=== PATIENT | female | born 1990 | race African-American/Black ===

== ENCOUNTER 2018-12-16 16:55 | Emergency (ER) | payer MEDICAID ==
[~2018-12-16] VITALS: Ht 152.4 cm; Wt 50.0 kg
[2018-12-16] MEDS ORDERED: ACETAMINOPHEN 325MG TABLET ONE (17:15)
[2018-12-16] MEDS ORDERED: KETOROLAC 15MG/ML VIAL IV ONE (21:30)
[2018-12-16] MEDS ORDERED: SODIUM CHLORIDE 0.9% 1000ML BAG (SEPSIS BOLUS) IV ONE (21:30)
[2018-12-16 21:47] LABS: BASOPHILS % 0.2 % (0.0-2.0); EOSINOPHILS % 0.2 % (0.0-5.0); HEMATOCRIT. 36.1 % (36.0-48.0); HEMOGLOBIN. 11.7 g/dL (12.0-16.0); LYMPHOCYTES % 16.8 % (20.0-50.0); MEAN CORPUSCULAR HEMOGLOBIN 27.4 pg (28.0-32.0); MEAN CORPUSCULAR VOLUME 84.8 fL (81.0-99.0); MEAN PLATELET VOLUME 9.4 fl (7.4-10.4); MONOCYTES % 10.2 % (2.0-8.0); NEUTROPHILS % 72.6 % (40.0-76.0); PLATELET 237 x1000/uL (130-400); RED BLOOD CELL COUNT 4.26 mill/uL (4.2-5.4); RED CELL DISTRIBUTION WIDTH 14.2 % (11.6-14.6)
[2018-12-16 21:52] LABS: CHLORIDE 114 mEq/L (98-107); INR 1.1; PROTHROMBIN TIME 10.8 sec (9.1-11.1)
[2018-12-16 21:59] LABS: HCG SCREEN NEGATIVE
[2018-12-16] MEDS ORDERED: IOHEXOL-300 100 ML BOTTLE ONE (23:44)
[2018-12-16 23:48] LABS: CLARITY URINE CLEAR (CLEAR); COLOR URINE YELLOW (YELLOW); KETONES URINE NEGATIVE (NEGATIVE); LEUKOCYTE ESTERASE URINE NEGATIVE (NEGATIVE); NITRITE URINE NEGATIVE (NEGATIVE); OCCULT BLOOD URINE 1+ (NEGATIVE); PROTEIN URINE NEGATIVE (NEGATIVE); SPECIFIC GRAVITY URINE 1.016 (1.005-1.030); UROBILINOGEN URINE 0.2 E.U./dL (0.2-1.0)
[2018-12-17] MEDS ORDERED: AMPICILLIN SOD/SULBACTAM NA 3 G in SODIUM CHLORIDE 0.9% 100 ML IV STA (00:05)
[2018-12-17 02:02] VITALS: BP 121/77
== END 2018-12-17 02:15 | disposition left against medical advice (07) ==
LOC: ER 16:55 → CANBEDREQ 12-17 02:53
DX: M27.2 Inflammatory conditions of jaws (principal); R05 Cough; R22.0 Localized swelling, mass and lump, head; K56.41 Fecal impaction
CPT/HCPCS: 36415; 70491; 71045; 74176; 80053; 81003; 81025; 83605; 84145; 84703; 85025; 85610; 87040; 87070; 87086; 87430; 87804; 93005; 96365; 96375; 99284; J0295; J1885; J7030; J7040; J7050; Q9967; Z7610

== ENCOUNTER 2018-12-23 11:57 | Emergency (ER) | payer MEDICAID ==
[~2018-12-23] VITALS: Ht 160 cm; Wt 46.0 kg
[2018-12-23 15:18] VITALS: BP 101/75
== END 2018-12-23 16:20 | disposition left against medical advice (07) ==
LOC: ER 11:57
DX: K13.79 Other lesions of oral mucosa (principal); Z53.21 Procedure and treatment not carried out due to patient leaving prior to being seen by health care provider

== ENCOUNTER 2020-02-22 15:20 | Inpatient (IN) | payer MEDICAID ==
[~2020-02-22] VITALS: Ht 162.6 cm; Wt 64.9 kg
[2020-02-22] MEDS ORDERED: ACETAMINOPHEN 325MG TABLET PO ONE (17:00)
[2020-02-22] MEDS ORDERED: SODIUM CHLORIDE 0.9% 1,000 ML IV ONE (17:59)
[2020-02-22 18:38] LABS: BASOPHILS % 0.3 % (0.0-2.0); EOSINOPHILS % 1.4 % (0.0-5.0); HEMATOCRIT. 37.8 % (36.0-48.0); HEMOGLOBIN. 12.4 g/dL (12.0-16.0); MEAN CORPUSCULAR HEMOGLOBIN 27.6 pg (28.0-32.0); MEAN CORPUSCULAR VOLUME 84.3 fL (81.0-99.0); MEAN PLATELET VOLUME 9.2 fl (7.4-10.4); MONOCYTES % 8.6 % (2.0-8.0); NEUTROPHILS % 64.7 % (40.0-76.0); PLATELET 249 x1000/uL (130-400); RED BLOOD CELL COUNT 4.48 mill/uL (4.2-5.4); RED CELL DISTRIBUTION WIDTH 13.9 % (11.6-14.6)
[2020-02-22 18:43] LABS: CHLORIDE 112 mEq/L (98-107)
[2020-02-22 18:50] LABS: PROTHROMBIN TIME 10.4 sec (9.6-11.0)
[2020-02-22] MEDS ORDERED: HYDROCODONE/ACETAMINOPHEN 5/325MG TABLET PO PRN (19:45)
[2020-02-22 21:15] VITALS: BP 111/64
[2020-02-22 21:30] VITALS: BP 111/64
[2020-02-22] MEDS ORDERED: LORAZEPAM 2MG/ML CPJ IV PRN (23:00)
[2020-02-22] MEDS ORDERED: TOPI200T15 MT (23:38)
[2020-02-22] MEDS ORDERED: CLON1TAB12 MT (23:38)
[2020-02-22] MEDS ORDERED: LACO100T2 MT (23:38)
[2020-02-22] MEDS ORDERED: CLONAZEPAM 1MG TABLET PO PRN (23:45)
[2020-02-22] MEDS ORDERED: POTASSIUM CHLORIDE 20MEQ TABLET SR PO NR (23:45)
[2020-02-23] VITALS: BP 89/55
[2020-02-23] MEDS: CLONAZEPAM 1MG TABLET PO SCH ×3 (00:44→16:35)
[2020-02-23] MEDS: TOPIRAMATE 100MG TABLET PO SCH ×3 (00:44→16:35)
[2020-02-23 04:00] VITALS: BP 91/53
[2020-02-23 08:00] VITALS: BP 91/41
[2020-02-23] MEDS: LEVETIRACETAM 500MG TABLET PO SCH ×2 (08:57→21:32)
[2020-02-23] MEDS ORDERED: LACOSAMIDE 100 MG TABLET PO SCH (09:00)
[2020-02-23 12:00] VITALS: BP 85/46
[2020-02-23 16:00] VITALS: BP 83/52
[2020-02-23 20:00] VITALS: BP 108/67
[2020-02-23] MEDS: LACOSAMIDE 100 MG TABLET PO SCH (21:33)
[2020-02-24] VITALS: BP 90/57
[2020-02-24 04:00] VITALS: BP 95/64
[2020-02-24 08:00] VITALS: BP 75/37
[2020-02-24] MEDS: TOPIRAMATE 100MG TABLET PO SCH (09:02)
[2020-02-24] MEDS: CLONAZEPAM 1MG TABLET PO SCH (09:02)
[2020-02-24] MEDS: LACOSAMIDE 100 MG TABLET PO SCH (09:02)
[2020-02-24] MEDS: LEVETIRACETAM 500MG TABLET PO SCH (09:02)
[2020-02-24] MEDS ORDERED: SODIUM CHLORIDE 0.9% 500 ML IV NR ×2 (09:34→09:45)
[2020-02-24 12:00] VITALS: BP 102/52
[2020-02-24 14:02] VITALS: BP 102/52
== END 2020-02-24 16:12 | disposition home health service (06) | DRG 351 ==
LOC: ER 15:20 → 6EST 18:37 → EDBEDREQ 18:43 → ENRESERV 20:33 → 6EST 02-23 00:42
PROVIDERS: ADMIT Internal Medicine; ATTEND Internal Medicine
DX: M79.89 Other specified soft tissue disorders (principal); E87.8 Other disorders of electrolyte and fluid balance, not elsewhere classified; E87.6 Hypokalemia; G40.909 Epilepsy, unspecified, not intractable, without status epilepticus; Z99.3 Dependence on wheelchair
CPT/HCPCS: 36415; 72170; 73552; 73562; 73590; 73630; 80053; 80339; 85025; 93971; 97116; 97162; 99285; J7030